=== PATIENT | female | born 1990 | race Caucasian/White ===

== ENCOUNTER 2017-09-16 10:23 | Emergency (ER) | payer MEDICAID ==
[2017-09-16 10:51] VITALS: TEMP 98.4
--- NOTE | 2017-09-16 11:17 | ED PDOC ---
Arrival/HPI - General Chief Complaint: Flu-like Symptoms Time Seen by Provider: 09/16/17 11:06 Historian: Patient - History of Present Illness Narrative History of Present Illness (Text): 09/16/17 11:10 27 year old female, with no significant past medical history, presents complaining of vomiting associated with cough and dizziness for the past three days and developing cold-sore on her lip today. Patient also reports lower back pain and lower abdominal pain. She denies any associated trauma. Patient refuses any work up and states she needs to leave. She simply request only to have urine to be checked. Patient denies any fever, chills, chest pain, shortness of breath, diarrhea, urinary symptoms, neck pain, headache, or any other complaints. PMD: Dr. Lavern Freeman Time/Duration: Other (3 days) Symptom Onset: Gradual Symptom Course: Unchanged Activities at Onset: Light Context: Home Past Medical History - Provider Review Nursing Documentation Reviewed: Yes - Infectious Disease Hx of Infectious Diseases: None - Pulmonary Hx Asthma: Yes - Psychiatric Hx Substance Use: No - Anesthesia Hx Anesthesia: No Hx Anesthesia Reactions: No Hx Malignant Hyperthermia: No Family/Social History - Physician Review Nursing Documentation Reviewed: Yes Family/Social History: No Known Family HX Smoking Status: Never Smoked Hx Alcohol Use: No Hx Substance Use: No Allergies/Home Meds Allergies/Adverse Reactions: Allergies No Known Allergies Allergy (Verified 09/16/17 10:51) Home Medications: Home Meds Medication Instructions Recorded Confirmed Levonorgestrel-Ethin Estradiol 1 tab PO DAILY 09/16/17 09/16/17 [Levora-28 Tablet] Review of Systems - Physician Review All systems were reviewed & negative as marked: Yes - Review of Systems Constitutional: absent: Fevers, Other (Chills) Respiratory: Cough. absent: SOB Cardiovascular: absent: Chest Pain Gastrointestinal: Abdominal Pain (lower abdominal pain), Vomiting. absent: Diarrhea, Nausea Musculoskeletal: Back Pain (Lower back pain). absent: Neck Pain Neurological: Dizziness. absent: Headache Physical Exam Vital Signs Reviewed: Yes Vital Signs Temp Pulse Resp BP Pulse Ox 09/16/17 12:19 77 18 131/76 99 09/16/17 10:44 98.4 F 88 20 145/82 98 Temperature: Afebrile Blood Pressure: Normal Pulse: Regular Respiratory Rate: Normal Appearance: Positive for: Well-Appearing, Non-Toxic, Comfortable Pain Distress: None Mental Status: Positive for: Alert and Oriented X 3 - Systems Exam Head: Present: Atraumatic, Normocephalic Pupils: Present: PERRL Extroacular Muscles: Present: EOMI Conjunctiva: Present: Normal Mouth: Present: Moist Mucous Membranes Neck: Present: Normal Range of Motion Respiratory/Chest: Present: Clear to Auscultation, Good Air Exchange. No: Respiratory Distress, Accessory Muscle Use Cardiovascular: Present: Regular Rate and Rhythm, Normal S1, S2. No: Murmurs Abdomen: Present: Tenderness (Mild nonfocal tenderness), Normal Bowel Sounds. No: Distention, Peritoneal Signs Back: Present: Normal Inspection Upper Extremity: Present: Normal Inspection. No: Cyanosis, Edema Lower Extremity: Present: Normal Inspection. No: Edema Neurological: Present: GCS=15, CN II-XII Intact, Speech Normal Skin: Present: Warm, Dry, Normal Color. No: Rashes Psychiatric: Present: Alert, Oriented x 3, Normal Insight, Normal Concentration Medical Decision Making ED Course and Treatment: 09/16/17 11:16 Impression: 27 year old female presents complaining of vomiting, cough, and dizziness for the past 3 days. Patient recently developed a cold-sore on lip today. Other reported symptoms include lower abdominal pain and lower back pain. Plan: -- Tylenol -- Zovirax -- HCG Qual Urine -- Urinalysis -- Urinalysis w/ Micro -- Reassess and disposition Progress Notes: Patient refuses any work up and states she needs to leave. She simply request only to have urine to be checked. 09/16/17 15:48 again offered further w/u upon d/c. pt declines, requests d/c home - Lab Interpretations Lab Results: Lab Results 09/16/17 11:30: Urine Color Yellow, Urine Appearance Clear, Urine pH 6.0, Ur Specific [place] 1.020, Urine Protein Negative, Urine Glucose (UA) Negative, Urine Ketones Negative, Urine Blood Trace-intact H, Urine Nitrate Negative, Urine Bilirubin Negative, Urine Urobilinogen 0.2, Ur Leukocyte Esterase Negative , Urine RBC 0 - 2, Urine WBC 0 - 2, Ur Epithelial Cells 6 - 8, Urine Bacteria Few, Urine HCG, Qual Negative I have reviewed the lab results: Yes - Medication Orders Current Medication Orders: Discontinued Medications Acetaminophen (Tylenol 325mg Tab) 975 mg PO STAT STA Stop: 09/16/17 11:12 Last Admin: 09/16/17 11:27 Dose: 975 mg MAR Pain/Vitals Document 09/16/17 11:27 EQ (Rec: 09/16/17 11:28 EQ [id number] Pain Reassessment Is This A Pain ReAssessment? No Sleep Is patient sleeping during reassessment? No Presence of Pain Presence of Pain Yes Acyclovir (Zovirax) 400 mg PO STAT STA PRN Reason: Protocol Stop: 09/16/17 11:12 Last Admin: 09/16/17 11:28 Dose: 400 mg - Scribe Statement The provider has reviewed the documentation as recorded by the Gemma Hair Provider Scribe Attestation: All medical record entries made by the Scribe were at my direction and personally dictated by me. I have reviewed the chart and agree that the record accurately reflects my personal performance of the history, physical exam, medical decision making, and the department course for this patient. I have also personally directed, reviewed, and agree with the discharge instructions and disposition. Disposition/Present on Arrival - Present on Arrival Any Indicators Present on Arrival: No History of DVT/PE: No History of Uncontrolled Diabetes: No Urinary Catheter: No History of Decub. Ulcer: No History Surgical Site Infection Following: None - Disposition Have Diagnosis and Disposition been Completed?: Yes Diagnosis: Viral syndrome, Cold sore, Abdominal pain Disposition: HOME/ ROUTINE Disposition Time: 12:00 Condition: STABLE Discharge Instructions (ExitCare): Oral Herpes Simplex Virus Infections (ED), Acute Abdominal Pain (ED), Viral Syndrome (ED) Additional Instructions: return to er with worsening symptoms or concerns. you are declining any lab work , iv fluids. you are able to return to er with worsening symptoms or concerns. Prescriptions: Acyclovir 400 mg PO 5XD #20 tablet Ondansetron ODT [Zofran ODT] 4 mg PO Q8 PRN #10 odt PRN Reason: Nausea/Vomiting Referrals: Lavern Freeman MD [Primary Care Provider] - Follow up with primary Forms: [employer] (Yi), WORK NOTE
[2017-09-16 11:33] LABS: URINE APPEARANCE CLEAR (CLEAR); URINE BILIRUBIN NEGATIVE (NEGATIVE); URINE BLOOD TRACE-INTACT (NEGATIVE); URINE COLOR YELLOW (YELLOW); URINE GLUCOSE (UA) NEGATIVE (NEGATIVE); URINE KETONE NEGATIVE (NEGATIVE); URINE LEUKOCYTE ESTERASE NEGATIVE Leu/uL (NEGATIVE); URINE PROTEIN NEGATIVE mg/dL (<30 mg/dL); URINE UROBILINOGEN 0.2 E.U./dL (<1 E.U./dL)
[2017-09-16 11:45] LABS: URINE BACTERIA FEW (NEG); URINE RBC 0 - 2 /hpf (0-2); URINE WBC 0 - 2 /hpf (0-6)
[2017-09-16 12:20] VITALS: BP 131/76; PULSE 77; RESP 18; O2SAT 99
== END 2017-09-16 12:20 | disposition home or self-care (01) ==
LOC: ED 10:23
DX: B34.9 Viral infection, unspecified (principal); B00.1 Herpesviral vesicular dermatitis; R10.9 Unspecified abdominal pain
CPT/HCPCS: 81001; 84703; 99283; J8499

== ENCOUNTER 2017-09-26 15:50 | Emergency (ER) | payer MEDICAID ==
[2017-09-26 16:03] VITALS: O2SAT 100
[2017-09-26] MEDS ORDERED: Albuterol-Ipratrop 3 mg / 0.5 (3 ml) UD IH STA (16:03)
[2017-09-26 16:09] VITALS: BMI 29.1
--- NOTE | 2017-09-26 16:15 | ED PDOC ---
Arrival/HPI - General Chief Complaint: Anxiety Time Seen by Provider: 09/26/17 15:58 Historian: Patient - History of Present Illness Narrative History of Present Illness (Text): 09/26/17 16:09 A 27 year old female, whose past medical history includes asthma, presents to the emergency department complaining of shortness of breath since earlier today. She reports that she feels anxious. Patient reports she has been trying to loss weight and took double the dose of Stacker2 pills today. [place] the [place] she became anxious and felt like she could not breathe. Patient took nebulizer treatment prior to arrival, with no relief. Patient denies any fever, chills, nausea, vomiting, abdominal pain, chest pain, lower extremity swelling or any other complaints. 09/26/17 21:36 Time/Duration: Other (today) Symptom Course: Unchanged Quality: Other Context: Other Past Medical History - Provider Review Nursing Documentation Reviewed: Yes - Infectious Disease Hx of Infectious Diseases: None - Pulmonary Hx Asthma: Yes - Psychiatric Hx Substance Use: No - Anesthesia Hx Anesthesia: No Hx Anesthesia Reactions: No Hx Malignant Hyperthermia: No Family/Social History - Physician Review Nursing Documentation Reviewed: Yes Family/Social History: No Known Family HX Smoking Status: Never Smoked Hx Alcohol Use: No Hx Substance Use: No Allergies/Home Meds Allergies/Adverse Reactions: Allergies No Known Allergies Allergy (Verified 09/16/17 10:51) Home Medications: Home Meds Medication Instructions Recorded Confirmed Levonorgestrel-Ethin Estradiol 1 tab PO DAILY 09/16/17 09/26/17 [Levora-28 Tablet] Review of Systems - Physician Review All systems were reviewed & negative as marked: Yes - Review of Systems Constitutional: absent: Fevers, Night Sweats Respiratory: SOB. absent: Cough, Sputum Cardiovascular: absent: Chest Pain Gastrointestinal: absent: Abdominal Pain, Constipation, Diarrhea, Nausea, Vomiting Genitourinary Female: absent: Dysuria Musculoskeletal: absent: Other (LE swelling) Neurological: absent: Headache, Dizziness, Focal Weakness, Gait Changes, Facial Droop, Disequilibrium Psychiatric: Anxiety Physical Exam Vital Signs Reviewed: Yes Vital Signs Temp Pulse Resp BP Pulse Ox 09/26/17 19:19 80 18 110/65 100 09/26/17 19:15 80 18 115/67 100 09/26/17 17:51 84 18 110/68 100 09/26/17 15:51 97.4 F L 92 H 20 105/65 100 Temperature: Afebrile Blood Pressure: Normal Pulse: Regular Respiratory Rate: Normal Appearance: Positive for: Well-Appearing, Non-Toxic, Other (Anxious) Pain Distress: None Mental Status: Positive for: Alert and Oriented X 3 - Systems Exam Head: Present: Atraumatic, Normocephalic Pupils: Present: PERRL Extroacular Muscles: Present: EOMI Conjunctiva: Present: Normal Mouth: Present: Moist Mucous Membranes Neck: Present: Normal Range of Motion Respiratory/Chest: Present: Good Air Exchange, Wheezes (scant wheezing). No: Respiratory Distress, Accessory Muscle Use Cardiovascular: Present: Regular Rate and Rhythm, Normal S1, S2. No: Murmurs Abdomen: Present: Normal Bowel Sounds. No: Tenderness, Distention, Peritoneal Signs Back: Present: Normal Inspection Upper Extremity: Present: Normal Inspection. No: Cyanosis, Edema Lower Extremity: Present: Normal Inspection. No: Edema Neurological: Present: GCS=15, CN II-XII Intact, Speech Normal Skin: Present: Warm, Dry, Normal Color. No: Rashes Psychiatric: Present: Alert, Oriented x 3, Normal Insight, Normal Concentration , Anxious Medical Decision Making ED Course and Treatment: 09/26/17 16:09 Impression: A 27 year old female with shortness of breath. Patient reports taking double the dose of her weight loss pills today. Symptoms likely from OTC medication Plan: -- Chest xray -- EKG -- Labs -- Duoneb -- Reassess and disposition Progress Notes: 09/26/17 17:15 EKG shows NSR at 88bpm with normal intervals and no ST changes 09/26/17 19:06 Trop negative. D-dimer mildly elevated. CTA negative for PE. After IVF patient reports that she feels better. - Lab Interpretations Lab Results: 09/26/17 16:25 09/26/17 16:25 Lab Results 09/26/17 16:25: D-Dimer, Quantitative 416 H 09/26/17 16:25: Sodium 139, Potassium 4.0, Chloride 102, Carbon Dioxide 25, Anion Gap 16, BUN 15, Creatinine 0.6 L, Est GFR ( Amer) > 60, Est GFR ( Non-Af Amer) > 60, Random Glucose 114 H, Calcium 9.6, Phosphorus 2.7, Magnesium 1.7, Total Bilirubin 0.3, AST 27, ALT 52, Alkaline Phosphatase 69, Troponin I 0.06, Total Protein 7.6, Albumin 4.3, Globulin 3.3, Albumin/Globulin Ratio 1.3 09/26/17 16:25: WBC 7.6, RBC 4.45, Hgb 13.2, Hct 39.5, MCV 88.8, MCH 29.7, MCHC 33.4, RDW 13.4, Plt Count 252, MPV 9.8, Gran % 68.2 H, Lymph % (Auto) 27.2, [place] % (Auto) 4.2, Eos % (Auto) 0.3 L, Baso % (Auto) 0.1, Gran # 5.20, Lymph # 2.1, [place] # 0.3, Eos # 0.0, Baso # 0.01 I have reviewed the lab results: Yes - RAD Interpretation Radiology Orders: 09/26/17 17:08 ANGIO CHEST PE PROTOCOL [CT] Stat - Medication Orders Current Medication Orders: Discontinued Medications Albuterol/Ipratropium (Duoneb 3 Mg/0.5 Mg (3 Ml) Ud) 3 ml IH STAT STA Stop: 09/26/17 16:04 Last Admin: 09/26/17 16:04 Dose: 3 ml Ondansetron HCl (Zofran Inj) 4 mg IVP STAT STA Stop: 09/26/17 16:52 Last Admin: 09/26/17 17:11 Dose: 4 mg IVP Administration Document 09/26/17 17:11 KANIKA (Rec: 09/26/17 17:11 [id number] Charges for Administration # of IVP Administrations 1 - Scribe Statement The provider has reviewed the documentation as recorded by the Emiliibbhanu Reis Provider Scribe Attestation: All medical record entries made by the Scribe were at my direction and personally dictated by me. I have reviewed the chart and agree that the record accurately reflects my personal performance of the history, physical exam, medical decision making, and the department course for this patient. I have also personally directed, reviewed, and agree with the discharge instructions and disposition. Disposition/Present on Arrival - Present on Arrival Any Indicators Present on Arrival: No History of DVT/PE: No History of Uncontrolled Diabetes: No Urinary Catheter: No History of Decub. Ulcer: No History Surgical Site Infection Following: None - Disposition Have Diagnosis and Disposition been Completed?: Yes Diagnosis: Medication adverse effect Disposition: HOME/ ROUTINE Disposition Time: 19:06 Patient Plan: Discharge Condition: GOOD Additional Instructions: Do not take cavalry officer 2 or similar OTC medications without speaking to your PMD. Return to ED if condition worsens. Follow-up with PMD within 2 days Referrals: Lavern Freeman MD [Primary Care Provider] - Follow up with primary Forms: [email or web address] (Lao)
[2017-09-26 16:35] LABS: BASO # 0.01 K/mm3 (0.0-2.0); BASO % 0.1 % (0.0-3.0); EOS % 0.3 % (1.5-5.0); GRAN # 5.2 (1.4-6.5); GRAN % 68.2 % (50.0-68.0); HEMATOCRIT 39.5 % (36.0-48.0); LYMPH # 2.1 (1.2-3.4); LYMPH % 27.2 % (22.0-35.0); MEAN CELL VOLUME 88.8 fl (80.0-105.0); MEAN CORPUSCULAR HEMOGLOBIN 29.7 pg (25.0-35.0); MEAN CORPUSCULAR HGB CONC 33.4 g/dl (31.0-37.0); MEAN PLATELET VOLUME 9.8 fl (7.0-11.0); MONO # 0.3 (0.1-0.6); MONO % 4.2 % (1.0-6.0); RED CELL DISTRIBUTION WIDTH 13.4 % (11.5-14.5); WHITE BLOOD COUNT 7.6 10^3/ul (4.5-11.0)
[2017-09-26 16:52] LABS: ALB/GLOB RATIO 1.3 (1.1-1.8); ALKALINE PHOSPHATASE 69 U/L (38-126); ALT/SGPT 52 U/L (7-56); AST/SGOT 27 U/L (14-36); BILIRUBIN,TOTAL 0.3 mg/dL (0.2-1.3); BLOOD UREA NITROGEN 15 mg/dL (7-21); CALCIUM 9.6 mg/dL (8.4-10.5); CARBON DIOXIDE 25 mmol/L (21-33); CHLORIDE 102 mmol/L (98-107); GFR AFRICAN-AMERICAN > 60; GLUCOSE,RANDOM 114 mg/dL (70-110); MAGNESIUM 1.7 mg/dL (1.7-2.2); PHOSPHOROUS 2.7 mg/dL (2.5-4.5); SODIUM 139 mmol/L (132-148); TOTAL PROTEIN 7.6 g/dL (5.8-8.3)
[2017-09-26 17:09] LABS: TROPONIN I 0.06 ng/mL
[2017-09-26] MEDS ORDERED: Iohexol 350 MG/100 ML VIAL ONE (17:21)
--- NOTE | 2017-09-26 19:07 | CT ---
PROCEDURE: CT Chest with contrast (Pulmonary Angiogram) HISTORY: acute onset SOB, elevated dimer COMPARISON: None available. TECHNIQUE: Axial computed tomography images were obtained of the chest in the pulmonary arterial phase of enhancement. Coronal and sagittal reformatted images were created and reviewed. Intravenous contrast dose: 94 cc Omnipaque 350. Mean Hounsfield unit values in the main pulmonary artery: 291.27 Radiation dose: Total exam DLP = 787.90 mGy-cm. This CT exam was performed using one or more of the following dose reduction techniques: Automated exposure control, adjustment of the mA and/or kV according to patient size, and/or use of iterative reconstruction technique. FINDINGS: PULMONARY ARTERIES: Unremarkable. No pulmonary embolism. AORTA: No acute findings. No thoracic aortic aneurysm. LUNGS: Unremarkable. No nodule, mass or pulmonary consolidation. PLEURAL SPACES: Unremarkable. No effusion or pneuomothorax. HEART: Unremarkable. No cardiomegaly. No significant pericardial effusion. LYMPH NODES: No lymphadenopathy. BONES, CHEST WALL: Unremarkable. No fracture or destructive lesion OTHER FINDINGS: Hepatosplenomegaly. IMPRESSION: Unremarkable CT pulmonary angiogram. No pulmonary embolus.
[2017-09-26 19:11] VITALS: TEMP 97.4
[2017-09-26 19:19] VITALS: RESP 18
[2017-09-26 19:21] VITALS: BP 110/65; PULSE 80
--- NOTE | 2017-09-27 19:11 | CARD ---
APPROVED REPORT EKG Measurement Heart [id number] <Conclusion> Normal sinus rhythm Cannot rule out Anterior infarct, age undetermined Abnormal ECG
== END 2017-09-26 19:22 | disposition home or self-care (01) ==
LOC: ED 15:50
DX: R06.02 Shortness of breath (principal); T50.995A Adverse effect of other drugs, medicaments and biological substances, initial encounter
CPT/HCPCS: 71275; 80053; 83735; 84100; 84484; 85025; 85378; 93005; 96374; 99284; J2405; Q9967

== ENCOUNTER 2017-11-11 14:13 | Emergency (ER) | payer MEDICAID ==
[2017-11-11 14:21] VITALS: BMI 38.6
[2017-11-11 14:27] VITALS: BP 124/83; PULSE 58; RESP 18; TEMP 97.7; O2SAT 99
--- NOTE | 2017-11-11 14:46 | ED PDOC ---
Arrival/HPI - General Chief Complaint: Back Pain Time Seen by Provider: 11/11/17 14:45 Historian: Patient - History of Present Illness Narrative History of Present Illness (Text): 11/11/17 14:46 This 27 yo female came c/o lower back pain, and urinary frequency x 3 weeks. Patient admits similar symptoms in the past. Patient denies sob, cp, weakness, paresthesias, /GI incontinence, saddle anesthesia, urinary retention, STD exposure, vaginal discharge, vaginal bleeding, trauma, dizziness, or abnormal gait. Patient stated she is in a hurry, and asking me how soon will all labs be available. I said within an hour. Past Medical History - Provider Review Nursing Documentation Reviewed: Yes - Infectious Disease Hx of Infectious Diseases: None - Pulmonary Hx Asthma: Yes - Psychiatric Hx Substance Use: No - Anesthesia Hx Anesthesia: No Hx Anesthesia Reactions: No Hx Malignant Hyperthermia: No Family/Social History - Physician Review Nursing Documentation Reviewed: Yes Family/Social History: Other (noncontributory) Smoking Status: Never Smoked Hx Alcohol Use: No Hx Substance Use: No Allergies/Home Meds Allergies/Adverse Reactions: Allergies No Known Allergies Allergy (Verified 09/16/17 10:51) Home Medications: Home Meds Medication Instructions Recorded Confirmed Home Med [Home Med] 1 tab PO DAILY 11/11/17 11/11/17 Review of Systems - Review of Systems Constitutional: Normal. absent: Fatigue, Weight Change, Fevers Eyes: Normal ENT: Normal Respiratory: Normal Cardiovascular: Normal Gastrointestinal: Normal Genitourinary Female: Frequency. absent: Dysuria, Hematuria, Vaginal Bleeding, Vaginal Discharge Musculoskeletal: Back Pain. absent: Neck Pain, Myalgias Skin: Normal. absent: Rash, Cellulitis Neurological: Normal. absent: Headache, Dizziness, Focal Weakness, Gait Changes , Speech Changes, Facial Droop, Disequilibrium, Seizure Endocrine: Normal Hemo/Lymphatic: Normal Psychiatric: Normal. absent: Depression, Suicidal Ideation Physical Exam Vital Signs Temp Pulse Resp BP Pulse Ox 11/11/17 14:26 97.7 F 58 L 18 124/83 99 Temperature: Afebrile Blood Pressure: Normal Pulse: Regular Respiratory Rate: Normal Appearance: Positive for: Well-Appearing, Non-Toxic, Comfortable Pain Distress: None Mental Status: Positive for: Alert and Oriented X 3 - Systems Exam Head: Present: Atraumatic, Normocephalic Pupils: Present: PERRL Extroacular Muscles: Present: EOMI Conjunctiva: Present: Normal Mouth: Present: Moist Mucous Membranes Neck: Present: Normal Range of Motion Respiratory/Chest: Present: Clear to Auscultation, Good Air Exchange. No: Respiratory Distress, Accessory Muscle Use Cardiovascular: Present: Regular Rate and Rhythm, Normal S1, S2. No: Murmurs Abdomen: Present: Normal Bowel Sounds. No: Tenderness, Distention, Peritoneal Signs Back: Present: Normal Inspection. No: CVA Tenderness, Paraspinal Tenderness, Pain with Leg Raise Upper Extremity: Present: Normal Inspection. No: Cyanosis, Edema Lower Extremity: Present: Normal Inspection. No: Edema Neurological: Present: GCS=15, CN II-XII Intact, Speech Normal Skin: Present: Warm, Dry, Normal Color. No: Rashes Psychiatric: Present: Alert, Oriented x 3, Normal Insight, Normal Concentration Medical Decision Making ED Course and Treatment: 11/11/17 15:51 Patient had ELOPED right after I examined patient. Disposition/Present on Arrival - Present on Arrival Any Indicators Present on Arrival: No History of DVT/PE: No History of Uncontrolled Diabetes: No Urinary Catheter: No History of Decub. Ulcer: No History Surgical Site Infection Following: None - Disposition Have Diagnosis and Disposition been Completed?: Yes Diagnosis: Back pain, Urinary frequency Disposition: LEFT W/O TREATMENT - ER ONLY Disposition Time: 15:55 Condition: UNKNOWN Forms: [email or web address] (Vietnamese)
== END 2017-11-11 15:27 | disposition left against medical advice (07) ==
LOC: ED 14:13
DX: Z02.89 Encounter for other administrative examinations (principal); R11.10 Vomiting, unspecified
CPT/HCPCS: 81025; LWBS0